=== PATIENT | female | born 2000 | race Caucasian/White ===

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

== ENCOUNTER → 2018-11-27 | Day surgery (SDC) | payer OTHER ==
[~2018-11-27] VITALS: Ht 160 cm; Wt 68.0 kg
[~2018-11-27] MED LIST changes: +TYLENOL W/ CODEI5 ML PO
--- NOTE | ~2018-11-27 | O ---
[place], [place] OPERATIVE NOTE NAME: KELLY MTZ UNIT #: [id number] ROOM: DOCTOR: AYUSH ALONZO DMD BIRTHDATE: [birth year] DOS: PREOPERATIVE DIAGNOSES: Caries and autism. POSTOPERATIVE DIAGNOSES: Caries and autism. ANESTHESIA: General anesthesia with nasotracheal intubation. FLUIDS: Minimal. ESTIMATED BLOOD LOSS: Minimal. COMPLICATIONS: None. CONDITION: To PACU, stable. DESCRIPTION OF PROCEDURE: The patient was brought to the OR and placed in supine position. IV and EKG lines were placed. Nasotracheal intubation, general anesthesia was administered. The patient was prepped and draped for oral procedures. Risks and benefits were explained to the parents prior to surgery. Clinical exam and x-rays taken determined impacted third molars, carries on teeth #3, 4, 5, 13, 15, 18, 21, 22, 28, 30 and 31. PROCEDURES PERFORMED: Full thickness flaps in the lower right and lower left quadrants. Complete extraction of teeth numbers 1, H, #16, 17 and 32. Sutured with 4-0 Vicryl. #2 occlusal composite. #3, occlusal composite. #4, mesiobuccal distal composite. #5, mesiobuccal distal composite. #13, mesiobuccal distal composite. #14, occlusal. #15, occlusal composite. #18, occlusal composite. #20, buccal composite. #21, mesiobuccal distal composite. #22, mesiobuccal distal composite. #28, mesiobuccal distal composite. #30, occlusal composite. #31, occlusal composite. Lavaged x 2. Throat pack removed. The patient left the OR in good condition and went to the PACU. AYUSH ALONZO DMD CM:OPRECORD:OPERATIVE NOTE [id number] AYUSH ALONZO DMD 11/28/18 1232 interface
[2018-11-27 09:04] VITALS: BP 108/78
[2018-11-27 11:30] VITALS: BP 103/67
[2018-11-27 11:45] VITALS: BP 117/90
[2018-11-27 12:00] VITALS: BP 103/67
[2018-11-27 12:30] VITALS: BP 111/79
== END | disposition home or self-care (01) ==
LOC: SDC 11-22 11:45
DX: K02.9 Dental caries, unspecified (principal); F84.0 Autistic disorder; J45.909 Unspecified asthma, uncomplicated; F41.9 Anxiety disorder, unspecified; F32.9 Major depressive disorder, single episode, unspecified; Z79.899 Other long term (current) drug therapy; Z98.890 Other specified postprocedural states; Z88.1 Allergy status to other antibiotic agents; Z88.8 Allergy status to other drugs, medicaments and biological substances

== ENCOUNTER 2019-03-23 20:14 | Emergency (ER) | payer OTHER ==
[~2019-03-23] VITALS: Ht 162.5 cm; Wt 68.0 kg
[2019-03-23 20:17] VITALS: BP 126/95
[2019-03-23] MEDS ORDERED: Bactrim 200 MG/30 ML PO (20:43)
== END 2019-03-23 20:49 | disposition home or self-care (01) ==
LOC: ED 20:14
DX: H60.93 Unspecified otitis externa, bilateral (principal); Z79.899 Other long term (current) drug therapy; Z88.0 Allergy status to penicillin; Z88.1 Allergy status to other antibiotic agents; Z88.8 Allergy status to other drugs, medicaments and biological substances

== ENCOUNTER 2019-05-27 18:25 | Emergency (ER) | payer OTHER ==
[~2019-05-27] VITALS: Wt 67.6 kg
[~2019-05-27 18:25] MED LIST changes: +Bactrim 200 MG/30 ML PO
[2019-05-27 18:27] VITALS: BP 141/109
[2019-05-27] MEDS ORDERED: Bactrim 200 MG/30 ML PO (18:51)
== END 2019-05-27 19:00 | disposition home or self-care (01) ==
LOC: ED 18:25
DX: L01.00 Impetigo, unspecified (principal); Z88.0 Allergy status to penicillin; Z88.8 Allergy status to other drugs, medicaments and biological substances; Z88.1 Allergy status to other antibiotic agents; Z79.899 Other long term (current) drug therapy; Z79.2 Long term (current) use of antibiotics

== ENCOUNTER → 2019-07-17 | Outpatient (CLI) | payer OTHER ==
[2019-07-17 10:44] LABS: FREE T4 0.71 ng/dl (0.76-1.46); THYROXINE (T4) TOTAL 4.9 ug/dl (4.8-13.9)
[2019-07-17 10:49] LABS: THYROID STIM HORMONE (HS) 1.59 uIU/ml (0.358-4.75)
[2019-07-18 07:11] LABS: THYROID PEROXIDASE (TPO) AB <6 IU/mL (0-34); TOTAL T3 (TT3) 002188 83 ng/dL (71-180)
[2019-07-18 14:10] LABS: THYROGLOBULIN ANTIBODY <1.0 IU/mL (0.0-0.9)
== END | disposition home or self-care (01) ==
LOC: LAB 09:53
PROVIDERS: Internal Medicine Endocrinology, Diabetes & Metabolism
DX: E03.9 Hypothyroidism, unspecified (principal)

== ENCOUNTER 2021-04-26 11:47 | Emergency (ER) | payer OTHER ==
[~2021-04-26] VITALS: Wt 73.5 kg
[2021-04-26 12:16] VITALS: BP 101/65
== END 2021-04-26 14:55 | disposition home or self-care (01) ==
LOC: ED 11:47
DX: J02.9 Acute pharyngitis, unspecified (principal); J40 Bronchitis, not specified as acute or chronic; Z88.0 Allergy status to penicillin; Z88.8 Allergy status to other drugs, medicaments and biological substances; Z79.899 Other long term (current) drug therapy; Z98.890 Other specified postprocedural states

== ENCOUNTER → 2022-02-16 | Outpatient (CLI) | payer OTHER | END | disposition home or self-care (01) | LOC: RAD 15:41 | PROVIDERS: ATTEND Nurse Practitioner Family | DX: R05.9 Cough, unspecified (principal); R09.81 Nasal congestion; R06.2 Wheezing; R53.83 Other fatigue ==

== ENCOUNTER → 2022-08-02 | Day surgery (SDC) | payer OTHER ==
[~2022-08-02] VITALS: Ht 157.4 cm; Wt 81.2 kg
[~2022-08-02] MED LIST changes: +FOCALIN PO; -FOCALIN XR15 MG PO; +ZYRTEC10 M2 PO; -ZYRTEC5 MG PO
[2022-08-02 11:00] VITALS: BP 132/95
[2022-08-02 13:22] VITALS: BP 125/89
[2022-08-02 13:35] VITALS: BP 124/85
[2022-08-02 13:50] VITALS: BP 117/76
[2022-08-02 14:05] VITALS: BP 126/89
[2022-08-02 14:20] VITALS: BP 115/73
== END | disposition home or self-care (01) ==
LOC: SDC 07-29 13:15
PROVIDERS: ATTEND Dentist General Practice
DX: K02.9 Dental caries, unspecified (principal); F41.9 Anxiety disorder, unspecified; J45.909 Unspecified asthma, uncomplicated

== ENCOUNTER 2022-08-16 19:01 | Emergency (ER) | payer OTHER ==
[2022-08-16 19:16] VITALS: BP 131/83
== END 2022-08-16 19:38 | disposition home or self-care (01) ==
LOC: ED 19:01
DX: K13.79 Other lesions of oral mucosa (principal); Z98.890 Other specified postprocedural states; Z79.899 Other long term (current) drug therapy; Z88.0 Allergy status to penicillin; Z88.1 Allergy status to other antibiotic agents

== ENCOUNTER 2022-08-23 11:41 | Emergency (ER) | payer OTHER ==
[2022-08-23 12:00] VITALS: BP 132/96
[2022-08-23] MEDS ORDERED: LEVOFLOXACIN500 MG PO (14:19)
[2022-08-23] MEDS ORDERED: PREDNISONE50 MG PO (14:19)
== END 2022-08-23 14:26 | disposition home or self-care (01) ==
LOC: ED 11:41
DX: J40 Bronchitis, not specified as acute or chronic (principal); B34.9 Viral infection, unspecified; Z79.899 Other long term (current) drug therapy; Z88.0 Allergy status to penicillin; Z88.1 Allergy status to other antibiotic agents

== ENCOUNTER 2023-04-28 17:11 | Emergency (ER) | payer OTHER ==
[~2023-04-28] VITALS: Wt 72.1 kg
[~2023-04-28 17:11] MED LIST changes: +LEVOFLOXACIN500 MG PO; +PREDNISONE50 MG PO
[2023-04-28 17:20] VITALS: BP 140/100
[2023-04-28] MEDS ORDERED: TRIAMCINOLONE430 GM TD (18:15)
[2023-04-28] MEDS ORDERED: PERMETHRIN60 GM T (18:15)
== END 2023-04-28 18:17 | disposition home or self-care (01) ==
LOC: ED 17:11
DX: R21 Rash and other nonspecific skin eruption (principal); J45.909 Unspecified asthma, uncomplicated; Z88.0 Allergy status to penicillin; Z88.1 Allergy status to other antibiotic agents; Z88.8 Allergy status to other drugs, medicaments and biological substances; Z90.89 Acquired absence of other organs; Z98.890 Other specified postprocedural states

== ENCOUNTER → 2023-05-10 | Outpatient (CLI) | payer OTHER ==
[~2023-05-10] MED LIST changes: +PERMETHRIN60 GM T; +TRIAMCINOLONE430 GM TD
[2023-05-10 14:59] LABS: BASO % 0.1 % (0.0-1.0); HEMATOCRIT 39.8 % (37.0-47.0); LYMPH # 1.6 10*3/uL (1.3-4.4); LYMPH % 23.2 % (27.0-41.0); MEAN CELL VOLUME 87.5 fl (81.0-99.0); MEAN CORPUSCULAR HGB 30.1 pg (27.0-31.0); MEAN CORPUSCULAR HGB CONC 34.4 g/dl (33.0-37.0); MEAN PLATELET VOLUME 10.5 fl (9.6-12.3); MONO # 0.4 10*3/uL (0.1-1.0); MONO % 5.2 % (3.0-9.0); NEUT # 4.8 10*3/uL (2.3-7.9); NEUT % 71.2 % (47.0-73.0); PLATELET COUNT AUTOMATED 215 10*3/uL (130-400); RED BLOOD COUNT 4.55 10*6/uL (4.10-5.10); RED CELL DISTRI WIDTH 12.6 % (0-14.5); WHITE BLOOD COUNT 6.8 10*3/uL (4.8-10.8)
[2023-05-10 15:34] LABS: ALKALINE PHOSPHATASE 77 U/L (46-116); BUN 10 mg/dl (9-23); CHLORIDE 106 mmol/L (98-107); POTASSIUM 4.2 mmol/L (3.4-5.1); SGPT/ALT 15 U/L (10-49); TOTAL PROTEIN 6.7 gm/dL (6.0-8.0)
== END ==
LOC: LAB 14:27
PROVIDERS: ATTEND Nurse Practitioner Family
DX: R21 Rash and other nonspecific skin eruption (principal); L21.0 Seborrhea capitis

== ENCOUNTER → 2025-07-01 | Outpatient (CLI) | payer OTHER ==
[~2025-07-01] MED LIST changes: +ALBUTEROL2.5 MG/0.5 INH; +DIPHENHYDRAMINE50 M1 PO; +MELATONIN1 MG PO
[2025-07-01 10:12] LABS: BASO # 0.0 10*3/uL (0.0-0.1); BASO % 0.0 % (0.0-1.0); EOS # 0.0 10*3/uL (0.0-0.4); EOS % 0.0 % (1.0-4.0); MEAN CELL VOLUME 89.2 fl (81.0-99.0); MEAN CORPUSCULAR HGB 29.9 pg (27.0-31.0); MEAN PLATELET VOLUME 10.5 fl (9.6-12.3); MONO # 0.4 10*3/uL (0.1-1.0); MONO % 11.0 % (3.0-9.0); NEUT # 1.6 10*3/uL (2.3-7.9); NEUT % 42.8 % (47.0-73.0); NUCLEATED RED BLOOD CELL 0.0 % (0.0-0.0); NUCLEATED RED BLOOD CELL 0.0 10*3/uL (0.0-0.0); PLATELET COUNT AUTOMATED 205 10*3/uL (130-400); RED CELL DISTRI WIDTH 12.5 % (0-14.5)
[2025-07-01 10:50] LABS: BUN 8 mg/dl (9-23); LDL CHOLESTEROL 83 mg/dL (9-159); SGPT/ALT 18 U/L (5-49)
== END | disposition home or self-care (01) ==
LOC: LAB 09:48
PROVIDERS: ATTEND Nurse Practitioner Family
DX: Z13.0 Encounter for screening for diseases of the blood and blood-forming organs and certain disorders involving the immune mechanism (principal); Z13.1 Encounter for screening for diabetes mellitus; Z13.29 Encounter for screening for other suspected endocrine disorder; Z13.220 Encounter for screening for lipoid disorders

== ENCOUNTER → 2025-07-08 | Day surgery (SDC) | payer OTHER ==
[~2025-07-08] MED LIST changes: +ACETAMINOPHEN 100 ML IV ONE; +Dexamethasone Sodium Phospha 4 MG/ML VIAL IV ONE; +Lidocaine Hydrochloride 5 ML VIAL IV ONE; +Midazolam Hydrochloride 2 MG/2 ML VIAL IV ONE; +Ondansetron Hydrochloride 4 MG/2 ML VIAL IV ONE; +PROPOFOL 200 MG/20 ML VIAL IV ONE; +ROCURONIUM BROMIDE 50 MG/5 ML SYRINGE IV ONE; +SEVOFLURANE 250 ML BOT INH ONE; +SODIUM CHLORIDE 0.9% 1,000 ML IV ONE; +SUGAMMADEX SODIUM 200 MG/2 ML VIAL IV ONE
[2025-07-08 11:07] VITALS: BP 133/96
[2025-07-08 13:46] VITALS: BP 103/63
[2025-07-08 14:01] VITALS: BP 117/71; BP 126/87
[2025-07-08 14:16] VITALS: BP 126/87
[2025-07-08 14:31] VITALS: BP 122/78
== END | disposition home or self-care (01) ==
LOC: SDC 07-04 13:15
PROVIDERS: ATTEND Dentist General Practice
DX: K02.9 Dental caries, unspecified (principal); F41.9 Anxiety disorder, unspecified; J40 Bronchitis, not specified as acute or chronic; F84.0 Autistic disorder; Z88.8 Allergy status to other drugs, medicaments and biological substances